=== PATIENT | female | born 1930 | race Caucasian/White ===

== ENCOUNTER → 2017-08-06 | Outpatient (CLI) | payer OTHER ==
[~2017-08-06] MED LIST: ACET-1311 PO; AMLO-110 PO; CETI10CA PO; CYAN3INJ IM; DOCU100C22 PO; HYDR-3419 PO; HYDR12.55 PO; HYDR25CA PO; MECL1TAB40 PO; MEDLIST; MRLP17 PO; PRD/25 PO; SUCR1TAB PO; TAPE50TA5 PO; TRAM-10 PO; TRAZ50TA35 PO
[2017-08-06 14:46] LABS: COMPLETE YES; HEMATOCRIT 32.2 % (37-47); IG% 0.2 %; LYMPH % 44.6 %; LYMPH ABS # 2.24 K/uL (1.2-3.4); MEAN CELL VOLUME 92.8 fL (80-100); MEAN CORPUSCULAR HEMOGLOBIN 31.1 pg (25-34); MEAN CORPUSCULAR HGB CONC 33.5 g/dl (32-36); MEAN PLATELET VOLUME 10.1 fL (7.4-10.4); MONO % 5.8 %; NEUT % 49.4 %; PLATELET COUNT 118 K/uL (130-400); RED BLOOD COUNT 3.47 M/uL (4.2-5.4); WHITE BLOOD COUNT 5.02 K/uL (4.8-10.8)
[2017-08-06 15:21] LABS: BLOOD UREA NITROGEN 24 mg/dl (7-18); BUN/CREATININE RATIO 15.6 (10-20); CALCIUM 8.6 mg/dl (8.5-10.1); CARBON DIOXIDE 30 mmol/L (21-32); CHLORIDE 100 mmol/L (98-107); CREATININE 1.55 mg/dl (0.60-1.20); GLUCOSE 110 mg/dl (70-99); POTASSIUM 3.5 mmol/L (3.5-5.1); SODIUM 136 mmol/L (136-145)
[2017-08-06 15:25] LABS: ALB/GLOB RATIO 0.4 (0.9-2); ALKALINE PHOSPHATASE 175 U/L (45-117); ALT/SGPT 15 U/L (12-78); AST/SGOT 23 U/L (15-37)
== END | disposition home or self-care (01) ==
LOC: C.LAB1850 13:39
PROVIDERS: ATTEND Internal Medicine
DX: N18.9 Chronic kidney disease, unspecified (principal); E53.8 Deficiency of other specified B group vitamins

== ENCOUNTER 2017-09-28 12:10 | Emergency (ER) | payer OTHER ==
[~2017-09-28] VITALS: Ht 162.6 cm; Wt 51.0 kg
[~2017-09-28 12:10] MED LIST changes: -DOCU100C22 PO; -HYDR12.55 PO; -MECL1TAB40 PO; -SUCR1TAB PO; -TRAM-10 PO; -TRAZ50TA35 PO
[2017-09-28 12:24] VITALS: TEMP 37.2; Ht 162.6 cm; Wt 51.0 kg
[2017-09-28 12:31] VITALS: O2SAT 96
[2017-09-28] MEDS ORDERED: HYDR-5688 PO (13:05)
[2017-09-28] MEDS ORDERED: PRLSR20 PO (13:05)
[2017-09-28] MEDS ORDERED: AMLO-114 PO (13:05)
[2017-09-28] MEDS ORDERED: ALL60 PO (13:05)
[2017-09-28] MEDS ORDERED: PRED-301 PO (13:05)
[2017-09-28] MEDS ORDERED: TAPE1TAB9 PO (13:05)
[2017-09-28] MEDS ORDERED: DRGTP25 TOP (13:05)
[2017-09-28] MEDS ORDERED: MIRT30TA PO (13:07)
[2017-09-28] MEDS ORDERED: FURO-85 PO (13:07)
[2017-09-28] MEDS ORDERED: CYNI1000 IM (13:07)
[2017-09-28] MEDS ORDERED: ONDANSETRON INJ 2 MG/ML 2 ML VIAL IV STA (13:10)
[2017-09-28] MEDS ORDERED: MoRPHine SULFATE 4 MG/ML 1 ML CARP\\VIAL IV PRN (13:15)
--- NOTE | 2017-09-28 13:36 | EMERGENCY ROOM VISIT NOTE ---
History Report prepared by Windy: Yoana Baez Under the Supervision of: Meseret NogueriaO. First contact with patient: 12:52 Chief Complaint: PAIN (GENERALIZED) Stated Complaint: ILLNESS History of Present Illness The patient is a 87 year old female who presents to the Emergency Room with complaints of persistent generalized pain that began one day ago. The patient was brought here by ambulance, noting they did not give her any medication prior to arrival. The patient's daughter states that the patient has been experiencing severe back pain that radiates to her shoulders and chest. She notes that the patient has been unable to stand up or move around due to her discomfort. Her daughter states that the patient has not been having any coughing, trouble breathing, fevers, or chills. The patient's daughter states that last time the patient had similar symptoms, they were relieved with traditional medicine and massages, noting that this time they did not relieve her symptoms. Her daughter gave her Fentanyl and Tramadol this morning, which did not help reduce her symptoms. The patient has a history of Arthritis and mini strokes. Source of History: patient Onset: one day ago Position: other (global) Quality: other (generalized pain) Timing: other (persistent) Associated Symptoms: No fevers, No chills, No cough Note: Associated symptoms: severe back pain that radiates to her shoulders and chest. Her daughter states that the patient has not been have trouble breathing Review of Systems See HPI for pertinent positives & negatives. A total of 10 systems reviewed and were otherwise negative. Past Medical & Surgical Medical Problems: (1) Arthritis (2) Arthritis (3) TIA (transient ischemic attack) (4) TIA (transient ischemic attack) Family History Patient reports no known family medical history. No pertinent family history. Social History Smoking Status: Never Smoker Smokeless Tobacco Use: No Alcohol Use: none Drug Use: none Housing Status: lives with family Occupation Status: retired Current/Historical Medications Scheduled Amlodipine (Norvasc), 10 MG PO DAILY Cyanocobalamin (Cyanocobalamin), 1 ML IM MONTHLY Fentanyl (Fentanyl), 25 MCG TOP [id number] Fexofenadine HCl (Fexofenadine HCl), 60 MG PO BID Hydrochlorothiazide (Hydrochlorothiazide), 12.5 MG PO DAILY Mirtazapine (Remeron), 30 MG PO HS Omeprazole (Prilosec), 20 MG PO DAILY Prednisone (Prednisone), 5 MG PO UD Sucralfate (Sucralfate), 1 GM PO AC Tapentadol Hcl (Nucynta Er), 50 MG PO Q12 Tramadol (Ultram), 50-100 MG PO TID Trazodone Hcl (Trazodone), 50 MG PO HS Scheduled PRN Docusate Sodium (Docqlace), 1 CAP PO BID PRN for Constipation Furosemide (Lasix), 20 MG PO DAILY PRN for edema Hydrocodone/Acetaminophen 5MG/325MG ([place] 5MG/325MG), 1-2 TABS PO every 4 to 6 hours PRN for Pain Meclizine Hcl (Meclizine Hcl), 1-2 TAB PO 6-8 HR PRN for Dizziness or Vertigo Allergies Coded Allergies: Aspirin (Verified Allergy, Mild, 07/31/16) Celecoxib (Unverified Allergy, Mild, RASH, 07/31/16) Loratadine (Unverified Allergy, Mild, HIVES, 07/31/16) Naproxen (Unverified Allergy, Mild, GI SYMPTOMS, 07/31/16) Nabumetone (Unverified Allergy, Unknown, HIVES, 07/31/16) Physical Exam Vital Signs Date Time Temp Pulse Resp B/P (MAP) Pulse Ox O2 Delivery O2 Flow Rate FiO2 09/28/17 17:15 81 154/65 99 09/28/17 16:16 75 87 Room Air 09/28/17 15:30 81 147/80 93 Room Air 09/28/17 14:51 79 136/56 98 Room Air 09/28/17 13:49 75 09/28/17 13:34 75 23 148/82 98 Room Air 09/28/17 12:31 96 Room Air 09/28/17 12:24 37.2 87 137/81 97 Room Air Physical Exam GENERAL: Patient is awake, alert, and in no acute distress. Patient is resting comfortably and showing no signs of anxiety or being uncomfortable EYES: The conjunctivae are clear. The pupils are round and reactive. EARS, NOSE, MOUTH AND THROAT: The nose is without any evidence of any deformity. Mucous membranes are moist tongue is midline NECK: The neck is nontender and supple. RESPIRATORY: Lung sounds diminished throughout with scattered rhonchi diminished throughout. No tachypnea or conversational dyspnea. CARDIOVASCULAR: Regular rate and rhythm noted there no murmurs rubs or gallops normal S1 normal S2 GASTROINTESTINAL: The abdomen is soft. Bowel sounds are present in all quadrants. Abdomen is nontender MUSCULOSKELETAL/EXTREMITIES: There is no evidence of gross deformity full range of motion is noted in the hips and shoulders SKIN: There is no obvious evidence of any rash. There are no petechiae, pallor or cyanosis noted. NEUROLOGIC: At baseline according to patient's daughter. Medical Decision & Procedures ER Provider Diagnostic Interpretation: Chest x-ray results as stated below per interpretation by me and the radiologist. CHEST ONE VIEW PORTABLE HISTORY: 87 years-old Female CHEST PAIN acute atypical chest pain COMPARISON: Acute abdominal series radiographs 01/19/2011 TECHNIQUE: Portable AP view of the chest FINDINGS: Cardiac silhouette is within normal limits. It is tortuosity and ectasia of the atherosclerotic thoracic aorta. There is no pneumothorax, pleural effusion, focal airspace consolidation or overt pulmonary edema. The bones of the chest appear demineralized and are grossly intact. Mild gaseous distention of the splenic flexure. IMPRESSION: No acute process. The above report was generated using voice recognition software. It may contain grammatical, syntax or spelling errors. Electronically signed by: Jak De La Garza M.D. 09/28/2017 1:33 PM Dictated Date/Time: 09/28/2017 1:32 PM Laboratory Results 09/28/17 13:43 Red Blood Count 3.16, Mean Corpuscular Volume 90.8, Mean Corpuscular Hemoglobin 30.1, Mean Corpuscular Hemoglobin Concent 33.1, Mean Platelet Volume 9.1, Neutrophils (%) (Auto) 61.1, Lymphocytes (%) (Auto) 29.4, Monocytes (%) (Auto) 9.3, Eosinophils (%) (Auto) 0.0, Basophils (%) (Auto) 0.0, Neutrophils # (Auto) 2.76, Lymphocytes # (Auto) 1.33, Monocytes # (Auto) 0.42, Eosinophils # (Auto) 0.00, Basophils # (Auto) 0.00 09/28/17 13:43 Test 09/28/17 13:43 White Blood Count 4.52 K/uL (4.8-10.8) Red Blood Count 3.16 M/uL (4.2-5.4) Hemoglobin 9.5 g/dL (12.0-16.0) Hematocrit 28.7 % (37-47) Mean Corpuscular Volume 90.8 fL (80-100) Mean Corpuscular Hemoglobin 30.1 pg (25-34) Mean Corpuscular Hemoglobin Concent 33.1 g/dl (32-36) Platelet Count 205 K/uL (130-400) Mean Platelet Volume 9.1 fL (7.4-10.4) Neutrophils (%) (Auto) 61.1 % Lymphocytes (%) (Auto) 29.4 % Monocytes (%) (Auto) 9.3 % Eosinophils (%) (Auto) 0.0 % Basophils (%) (Auto) 0.0 % Neutrophils # (Auto) 2.76 K/uL (1.4-6.5) Lymphocytes # (Auto) 1.33 K/uL (1.2-3.4) Monocytes # (Auto) 0.42 K/uL (0.11-0.59) Eosinophils # (Auto) 0.00 K/uL (0-0.5) Basophils # (Auto) 0.00 K/uL (0-0.2) RDW Standard Deviation 43.7 fL (36.4-46.3) RDW Coefficient of Variation 13.0 % (11.5-14.5) Immature Granulocyte % (Auto) 0.2 % Immature Granulocyte # (Auto) 0.01 K/uL (0.00-0.02) Prothrombin Time 11.0 SECONDS (9.0-12.0) Prothromb Time International Ratio 1.0 (0.9-1.1) Activated Partial Thromboplast Time 26.6 SECONDS (21.0-31.0) Partial Thromboplastin Ratio 1.0 Anion Gap 6.0 mmol/L (3-11) Est Creatinine Clear Calc Drug Dose 18.5 ml/min Estimated GFR () 30.9 Estimated GFR (Non- 26.7 BUN/Creatinine Ratio 15.9 (10-20) Calcium Level 8.1 mg/dl (8.5-10.1) Total Bilirubin 0.5 mg/dl (0.2-1) Direct Bilirubin 0.2 mg/dl (0-0.2) Aspartate Amino Transf (AST/SGOT) 28 U/L (15-37) Alanine Aminotransferase (ALT/SGPT) 17 U/L (12-78) Alkaline Phosphatase 188 U/L (45-117) Total Creatine Kinase 37 U/L (26-192) Creatine Kinase MB 0.8 ng/ml (0.5-3.6) Creatine Kinase MB Ratio 2.2 (0-3.0) Troponin I 0.020 ng/ml (0-0.045) Total Protein 6.9 gm/dl (6.4-8.2) Albumin 1.9 gm/dl (3.4-5.0) Lipase 109 U/L (73-393) Laboratory results per my review. Medications Administered Medications (Trade) Dose Ordered Sig/Yarely Route Start Time Stop Time Status Last Admin Dose Admin Morphine Sulfate (MoRPHine SULFATE INJ) 4 mg Q15M PRN IV 09/28/17 13:15 09/28/17 18:24 DC 09/28/17 13:34 4 MG Ondansetron HCl (Zofran Inj) 4 mg NOW STAT IV 09/28/17 13:10 09/28/17 13:12 DC 09/28/17 13:33 4 MG Fentanyl (Duragesic Patch) 25 mcg NOW ONCE TD 09/28/17 15:45 09/28/17 15:46 DC 09/28/17 15:30 25 MCG ECG Indication: other (generalized pain) Rate (beats per minute): 93 Rhythm: atrial fibrillation Findings: no ectopy, other (No acute ST segment abnormalities. ) Change: no significant change (12/23/06.) Change: Electrocardiogram as interpreted by me. ED Course 1258: The patient was evaluated in room C5. A complete history and physical examination were performed. 1310: Ordered Zofran Inj 4mg IV. 1315: Ordered Morphine Sulfate 4mg IV. 1457: I reevaluated the patient. She is a little bit more anemic and dehydrated , compared to her last labs. 1545: Ordered Fentanyl 25mcg. 1548: Upon reevaluation, the patient is resting. I discussed the results and treatment plan with the patient and her daughter. They verbalized agreement of the treatment plan. The patient was discharged home. Medical Decision Additional history obtained from patient's daughter. The patient's history was concerning for chest pain. Differential diagnosis: Etiologies such as cardiac ischemia, aortic dissection, pulmonary embolism, pneumonia, pneumothorax, musculoskeletal, infections, pericarditis, myocarditis , esophageal rupture, gastrointestinal, as well as others were entertained. The patient is an 87-year-old female who presented to the emergency department because of pain. The patient has chest pain as well as upper back pain. The patient has a history of chronic pain from her underlying medical conditions. She is currently taking chronic pain medication but her pain appears to be somewhat uncontrolled this evening. I discussed the patient's laboratory and radiographic studies with her and her daughter. I recommended that she start a dosage change with her pain medication. Her daughter was encouraged to reevaluate her often to ensure that she is not having too much sedation with the pain medication. She was encouraged to follow-up with primary care physician as scheduled but return to the emergency department immediately if symptoms change or worsen or the need arises. Medication Reconcilliation Current Medication List: was personally reviewed by me Blood Pressure Screening Patient's blood pressure: Elevated blood pressure Blood pressure disposition: Elevated BP felt to be situational Impression Primary Impression: Chest pain Additional Impression: Chronic pain Scribe Attestation The scribe's documentation has been prepared under my direction and personally reviewed by me in its entirety. I confirm that the note above accurately reflects all work, treatment, procedures, and medical decision making performed by me. Departure Information Dispostion Home / Self-Care Referrals Quintin Haley M.D. (PCP) Forms HOME CARE DOCUMENTATION FORM, IMPORTANT VISIT INFORMATION, WORK / SCHOOL INSTRUCTIONS Patient Instructions My [facility] Additional Instructions Continue all medications as prescribed. Change the old fentanyl patch at the time that you normally would. Be sure to watch the patient closely for any signs of decreased activity and decreased mentation. If this develops remove 1 of the fentanyl patches. Follow-up with the primary care physician on Sunday as scheduled. Return to the emergency department immediately if symptoms change worsening the need arises. Problem Qualifiers Primary Impression: Chest pain Chest pain type: unspecified Qualified Codes: R07.9 - Chest pain, unspecified Additional Impression: Chronic pain Chronic pain type: other chronic pain Qualified Codes: G89.29 - Other chronic pain
[2017-09-28 13:56] LABS: HEMATOCRIT 28.7 % (37-47); HEMOGLOBIN 9.5 g/dL (12.0-16.0); IG# 0.01 K/uL (0.00-0.02); LYMPH % 29.4 %; LYMPH ABS # 1.33 K/uL (1.2-3.4); MEAN CELL VOLUME 90.8 fL (80-100); MEAN CORPUSCULAR HEMOGLOBIN 30.1 pg (25-34); MEAN CORPUSCULAR HGB CONC 33.1 g/dl (32-36); MEAN PLATELET VOLUME 9.1 fL (7.4-10.4); MONO % 9.3 %; MONO ABS # 0.42 K/uL (0.11-0.59); NEUT % 61.1 %; NEUT ABS # 2.76 K/uL (1.4-6.5); PLATELET COUNT 205 K/uL (130-400); RED CELL DISTRIBUTION WIDTH SD 43.7 fL (36.4-46.3); WHITE BLOOD COUNT 4.52 K/uL (4.8-10.8)
[2017-09-28 14:05] LABS: PTT PATIENT 26.6 SECONDS (21.0-31.0)
[2017-09-28 14:14] LABS: ALBUMIN 1.9 gm/dl (3.4-5.0); CALCIUM 8.1 mg/dl (8.5-10.1); CREATININE 1.69 mg/dl (0.60-1.20); POTASSIUM 3.7 mmol/L (3.5-5.1)
[2017-09-28 14:20] LABS: CKMB 0.8 ng/ml (0.5-3.6); TOTAL PROTEIN 6.9 gm/dl (6.4-8.2)
[2017-09-28] MEDS ORDERED: FENTANYL 50 MCG/HR TDSY TD STA (15:01)
[2017-09-28] MEDS ORDERED: DOCU100C22 PO (15:29)
[2017-09-28] MEDS ORDERED: MECL1TAB40 PO (15:29)
[2017-09-28] MEDS ORDERED: SUCR1TAB PO (15:29)
[2017-09-28] MEDS ORDERED: HYDR12.55 PO (15:29)
[2017-09-28] MEDS ORDERED: FENTANYL 25 MCG/HR TDSY TD ONE (15:45)
[2017-09-28 17:15] VITALS: BP 154/65; PULSE 81; O2SAT 99
[2017-09-28] MEDS ORDERED: TRAZ50TA35 PO (17:48)
[2017-09-28] MEDS ORDERED: TRAM-10 PO (17:48)
== END 2017-09-28 17:15 | disposition home or self-care (01) ==
LOC: C.EDC 12:10 → EDBD 12:10 → C.EDC 17:15
DX: R07.9 Chest pain, unspecified (principal); G89.29 Other chronic pain; M19.90 Unspecified osteoarthritis, unspecified site; Z86.73 Personal history of transient ischemic attack (TIA), and cerebral infarction without residual deficits

== ENCOUNTER → 2017-10-01 | Outpatient (CLI) | payer OTHER ==
[~2017-10-01] MED LIST changes: -ACET-1311 PO; +ALL60 PO; -AMLO-110 PO; +AMLO-114 PO; -CETI10CA PO; -CYAN3INJ IM; +CYNI1000 IM; +DOCU100C22 PO; +DRGTP25 TOP; +FURO-85 PO; -HYDR-3419 PO; +HYDR-5688 PO; +HYDR12.55 PO; -HYDR25CA PO; +MECL1TAB40 PO; -MEDLIST; +MIRT30TA PO; -MRLP17 PO; -PRD/25 PO; +PRED-301 PO; +PRLSR20 PO; +SUCR1TAB PO; +TAPE1TAB9 PO; -TAPE50TA5 PO; +TRAM-10 PO; +TRAZ50TA35 PO
== END | disposition home or self-care (01) ==
LOC: C.LAB1850 11:16
PROVIDERS: ATTEND Nurse Practitioner Adult Health
DX: R68.83 Chills (without fever) (principal)

== ENCOUNTER → 2017-10-15 | Outpatient (CLI) | payer OTHER ==
[2017-10-15 11:55] LABS: HEMATOCRIT 28.5 % (37-47); HEMOGLOBIN 9.5 g/dL (12.0-16.0); MEAN CELL VOLUME 92.5 fL (80-100); MEAN CORPUSCULAR HEMOGLOBIN 30.8 pg (25-34); MEAN CORPUSCULAR HGB CONC 33.3 g/dl (32-36); MEAN PLATELET VOLUME 10.3 fL (7.4-10.4); PLATELET COUNT 130 K/uL (130-400); RED CELL DISTRIBUTION WIDTH CV 13.5 % (11.5-14.5); RED CELL DISTRIBUTION WIDTH SD 46.2 fL (36.4-46.3); WHITE BLOOD COUNT 3.64 K/uL (4.8-10.8)
[2017-10-15 12:26] LABS: ALBUMIN 2.1 gm/dl (3.4-5.0); ALT/SGPT 29 U/L (12-78); BLOOD UREA NITROGEN 31 mg/dl (7-18); CALCIUM 8.6 mg/dl (8.5-10.1); CARBON DIOXIDE 31 mmol/L (21-32); CREATININE 1.78 mg/dl (0.60-1.20); GLUCOSE 106 mg/dl (70-99); POTASSIUM 4.1 mmol/L (3.5-5.1); SODIUM 138 mmol/L (136-145)
[2017-10-15 12:29] LABS: ALKALINE PHOSPHATASE 375 U/L (45-117); AST/SGOT 48 U/L (15-37)
== END | disposition home or self-care (01) ==
LOC: C.LAB1850 11:11
PROVIDERS: ATTEND Nurse Practitioner Adult Health
DX: N39.0 Urinary tract infection, site not specified (principal); I12.9 Hypertensive chronic kidney disease with stage 1 through stage 4 chronic kidney disease, or unspecified chronic kidney disease; N18.9 Chronic kidney disease, unspecified; R60.9 Edema, unspecified